=== PATIENT | male | born 1940 | race Caucasian/White ===

== ENCOUNTER → 2017-12-31 09:13 | Outpatient (CLI) | payer MEDICARE, SELFPAY ==
[2017-12-31 09:53] LABS: Basophils % 0.5 % (0.1-2.0); Eosinophils # 0.1 K/mm3 (0.0-0.4); Eosinophils % 1.8 % (0.1-12.0); Hematocrit 42.7 % (42.0-52.0); Lymphocytes # 1.4 K/mm3 (0.7-4.5); Lymphocytes % 19.8 K/mm3 (10-50); Mean Corpuscular HGB Conc 32.9 g/dL (31.8-35.4); Mean Corpuscular Hemoglobin 30.7 pg (27.0-31.2); Mean Corpuscular Volume 93.3 fl (80-94); Mean Platelet Volume 9.6 fl (7.4-10.4); Monocytes # 0.4 K/mm3 (0.1-1.0); Monocytes % 5.8 % (1.7-9.3); Neutrophils # 5.1 K/mm3 (1.8-7.8); Neutrophils % 72.2 % (37.0-80.0); Platelet Count 180 K/mm3 (142-424); Red Blood Count 4.57 M/mm3 (4.60-6.20); Red Cell Distribution Width 14.4 % (11.5-17.5); White Blood Count 7.1 K/mm3 (4.8-10.8)
[2017-12-31 10:15] LABS: Hemoglobin A1C 8.2 % (0.0-7.0)
[2017-12-31 11:50] LABS: Alanine Aminotransferase 34 U/L (12-78); Albumin Level 4.4 gm/dL (3.4-5.0); Albumin/Globulin Ratio 1.5 (1.1-1.8); Alkaline Phosphatase 52 U/L (46-116); Anion Gap 15.5 mEq/L (5-15); Aspartate Amino Transferase 19 U/L (15-37); Bilirubin,Total 0.8 mg/dL (0.2-1.0); Blood Urea Nitrogen 29 mg/dL (7-18); Calcium 9.7 mg/dL (8.5-10.1); Carbon Dioxide 26 mmol/L (21.0-32.0); Chloride 101 mmol/L (98-107); Chol/HDL Ratio 3.2 (1-3.5); Cholesterol 141 mg/dL (140-200); Creatinine,Serum 1.06 mg/dL (0.70-1.30); Estimated Glomerular Filt Rate 68 ml/min (>60); GFR (African American) 82 ML/MIN (>60); Glucose 150 mg/dL (74-106); HDL Cholesterol 44 mg/dL (27-67); LDL Cholesterol 77 mg/dL (0-130); Potassium 4.5 mmoL/L (3.5-5.1); Prostate Specific Ag Screen 1.7 ng/mL (0.0-4.0); Sodium 138 mmol/L (136-145); Total Protein,Serum 7.4 gm/dL (6.4-8.2); Triglycerides 100 mg/dL (30-200); VLDL Cholesterol 20 mg/dL (0-40)
== END ==
PROVIDERS: Visit Provider Nurse Practitioner Family
DX: M05.79 Rheumatoid arthritis with rheumatoid factor of multiple sites without organ or systems involvement (principal); E11.9 Type 2 diabetes mellitus without complications; I10 Essential (primary) hypertension; N40.1 Benign prostatic hyperplasia with lower urinary tract symptoms; Z12.5 Encounter for screening for malignant neoplasm of prostate
CPT/HCPCS: 36415; 80053; 80061; 83036; 85025; G0103

== ENCOUNTER → 2018-05-11 09:21 | Outpatient (CLI) | payer MEDICARE, SELFPAY ==
--- NOTE | 2018-05-11 09:27 | XR_ITS ---
XR foot RT min 3V HISTORY: ITS.REASON: RT FOOT PAIN ORDERING PHYSICIAN: Velma Rojas PATIENT AGE: 78 years COMPARISON: None FINDINGS: No fracture or dislocation. No lytic or blastic change. There is normal mineralization.. The joint spaces are well-preserved. No significant degenerative/arthritic changes. No erosive changes evident. Small area of cortical irregularity involves the distal and medial aspect of the medial cuneiform. This is of questionable clinical significance and may be related to small subarticular cyst IMPRESSION: 1. No acute finding. 2. Nonspecific mild cortical irregularity of the medial cuneiform and could be related to a small subarticular cyst
--- NOTE | 2018-05-11 09:30 | US_ITS ---
US scrotum HISTORY: ITS.REASON: RT TESTICULAR PAIN ORDERING PHYSICIAN: Velma Rojas PATIENT AGE: 78 years Comparison: None FINDINGS: The right testicle is 3.5 x 2 x 3.2 cm and has an unremarkable appearance. No testicular mass. There is a small epididymal cyst at 5 mm in the head of the epididymis. Blood flow is present. No significant hydrocele. The left testicle is 3.9 x 3.4 x 2.2 cm. There is a 6 mm left epididymal cyst. No testicular mass apparent. Blood flow is present. No significant hydrocele. IMPRESSION: Small bilateral epididymal cyst otherwise negative testicular ultrasound
== END ==
PROVIDERS: PCP Nurse Practitioner Family; Visit Provider Nurse Practitioner Family
DX: M79.671 Pain in right foot (principal); N50.811 Right testicular pain
CPT/HCPCS: 73630; 76870

== ENCOUNTER 2018-06-24 12:33 | Observation (INO) ==
[2018-06-24 13:31] LABS: Basophils % 0.2 % (0.1-2.0); Eosinophils # 0.1 K/mm3 (0.0-0.4); Eosinophils % 1.1 % (0.1-12.0); Hematocrit 43.5 % (42.0-52.0); Lymphocytes # 0.6 K/mm3 (0.7-4.5); Lymphocytes % 5.4 % (10-50); Mean Corpuscular HGB Conc 32.2 g/dL (31.8-35.4); Mean Corpuscular Hemoglobin 30.5 pg (27.0-31.2); Mean Corpuscular Volume 94.8 fl (80-94); Mean Platelet Volume 8.8 fl (7.4-10.4); Monocytes # 0.6 K/mm3 (0.1-1.0); Monocytes % 5.6 % (1.7-9.3); Neutrophils # 9.8 K/mm3 (1.8-7.8); Neutrophils % 87.7 % (37.0-80.0); Platelet Count 189 K/mm3 (142-424); Red Blood Count 4.59 M/mm3 (4.60-6.20); Red Cell Distribution Width 15.6 % (11.5-17.5); White Blood Count 11.2 K/mm3 (4.8-10.8)
[2018-06-24 13:43] LABS: Albumin Level 3.8 gm/dL (3.4-5.0); Albumin/Globulin Ratio 0.9 (1.1-1.8); Anion Gap 15.3 mEq/L (5-15); Calcium 9.4 mg/dL (8.5-10.1); Globulin 4.2 gm/dl (1.3-3.2); Potassium 4.3 mmoL/L (3.5-5.1)
[2018-06-24 14:11] LABS: Lymphocytes % 6 % (10-50); Monocytes % 7 % (2-9); Neutrophils % 86 % (42-76); RBC Morphology Normal; Total Cells Counted 100
[2018-06-24 15:01] LABS: Coronavirus 229E Not Detected (NotDetected); Coronavirus NL63 Not Detected (NotDetected); Coronavirus OC43 Not Detected (NotDetected); Coronovirus HKU1,PCR Not Detected (NotDetected)
--- NOTE | 2018-06-24 15:08 | Consult Report ---
*Admission Date: 06/24/18 *Chief complaint: difficulty swallowing/dysphagia/sore throat *History of present illness: see other report [facility] History I have reviewed the patient's past medical history: Yes Medical History: Reports:: Congestive Heart Failure, Coronary Artery Disease, Diabetes Mellitus Type 2, Hyperlipidemia, Hypertension Denies:: Cancer, MRSA Other Medical History: Reports: Arthritis Laterality Cases: Right: Arthroscopy Knee Other Surgeries: Yes: Cardiac Catheterization, Coronary Stent Amputation: No - *Social History Educational Level: Attended College Smoking Status: Former smoker # Packs/Day (cigarettes): 2 #Yrs smoked (if former smoker): 30 Alcohol Intake: never Occupational Status: retired Housing: house Household Members: spouse - Psychiatric History Expresses thoughts of harming self/others: None Suicide Plan Description: No Plan *Family Hx:: Cancer, Hyperlipidemia, Hypertension Review of Systems - ENT Reports pain with swallowing, Reports sore throat Meds Home Medications Medication Instructions Recorded Confirmed Type aspirin 81 mg tablet,delayed 81 mg PO DAILY 06/22/18 06/22/18 History release folic acid 1 mg tablet 1 mg PO DAILY 06/22/18 06/22/18 History lisinopril 10 mg tablet 10 mg PO DAILY 06/22/18 06/22/18 History metformin 1,000 mg tablet 1,000 mg PO BID 06/22/18 06/22/18 History metoprolol tartrate 50 mg tablet 50 mg PO BID 06/22/18 06/22/18 History pravastatin 40 mg tablet 40 mg PO DAILY 06/22/18 06/22/18 History prednisone 1 mg tablet 1 mg PO BID tab 06/22/18 06/22/18 History Allergies Allergy/AdvReac Type Severity Reaction Status Date / Time No Known Allergies Allergy Verified 06/22/18 12:52 Exam Vital signs and Labs for Last 24 Hours: Temp Pulse Resp BP Pulse Ox 99.6 F 120 H 20 142/85 H 96 06/24/18 12:56 06/24/18 12:56 06/24/18 12:56 06/24/18 12:56 06/24/18 12:56 Laboratory Results - last 24 hr 06/24/18 13:15: WBC 11.2 H, RBC 4.59 L, Hgb 14.0 L, Hct 43.5, MCV 94.8 H, MCH 30.5, MCHC 32.2, RDW 15.6, Plt Count 189, MPV 8.8, Neut % (Auto) 87.7 H, Lymph % (Auto) 5.4 L, [place] % (Auto) 5.6, Eos % (Auto) 1.1, Baso % (Auto) 0.2, Neut # (Auto) 9.8 H, Lymph # (Auto) 0.6 L, [place] # (Auto) 0.6, Eos # (Auto) 0.1, Baso # (Auto) 0.0, Total Counted 100, Neutrophils % (Manual) 86 H, Lymphocytes % (Manual) 6 L, Atypical Lymphs % 1.0, Monocytes % (Manual) 7, Platelet Estimate Normal, RBC Morphology Normal 06/24/18 13:15: Sodium 137, Potassium 4.3, Chloride 99, Carbon Dioxide 27, Anion Gap 15.3 H, BUN 30 H, Creatinine 1.44 H, Estimated Creat Clear 45, Estimated GFR 47 L, Est GFR ( Amer) 57 L, Glucose 165 H, Calcium 9.4, Total Bilirubin 1.0, AST 14 L, ALT 24, Alkaline Phosphatase 68, Total Protein 8.0, Albumin 3.8, Globulin 4.2 H, Albumin/Globulin Ratio 0.9 L 06/24/18 13:15: Lactate 2.0 I & O for Last 24 hours: Intake & Output 06/21/18 06/22/18 06/23/18 06/24/18 23:59 23:59 23:59 23:59 Weight 165 lb 1 oz - *Routine HEENT Exam Comments: This patient was examined because of dysphagia and a sore throat of 24 hours duration. He was admitted because of a choking episode that he experienced. Examination revealed acute pharyngitis and a very hyperactive gag reflex. There was no cervical lymphadenopathy or enlargement of his thyroid. Rest of the exam was noncontributory. No acute respiratory distress. No evidence of Inspiratory or expiratory stridor. There Was no history of hemoptysis or Persistent cough. I note a CT of the neck and a chest x-ray has been done but it had not been reported as of this dictation. I ordered a stat barium swallow examination and we will complete the report once all of the imaging is done. Dr. Aden Garcia. Internal Medicine - CN: Reslt - Labs CBC & Chem 7: 06/24/18 13:15 06/24/18 13:15 Labs: Short CBC 06/24/18 Range/Units 13:15 WBC 11.2 H (4.8-10.8) K/mm3 Hgb 14.0 L (14.1-18.0) g/dL Hct 43.5 (42.0-52.0) % Plt Count 189 (142-424) K/mm3 BMP 06/24/18 13:15 Sodium 137 Potassium 4.3 Chloride 99 Carbon Dioxide 27 BUN 30 H Creatinine 1.44 H Glucose 165 H Calcium 9.4 Liver Function 06/24/18 Range/Units 13:15 Total Bilirubin 1.0 (0.2-1.0) mg/dL AST 14 L (15-37) U/L ALT 24 (12-78) U/L Alkaline Phosphatase 68 (46-116) U/L Albumin 3.8 (3.4-5.0) gm/dL
--- NOTE | 2018-06-24 15:08 | Pharmacy Consult Notes ---
[facility] Pharmacy VTE Monitoring - Patient Demographics Admission date: 06/24/18 Report Date: 06/24/18 Time: 15:07 Allergies/Adverse Reactions: Patient Allergies No Known Allergies Allergy (Verified 06/22/18 12:52) Height: 1.7 m Weight: 74.871 kg - VTE Risk Labs: VTE Related Lab Results Hgb 14.0 g/dL (14.1-18.0) L 06/24/18 13:15 Hct 43.5 % (42.0-52.0) 06/24/18 13:15 Plt Count 189 K/mm3 (142-424) 06/24/18 13:15 BUN 30 mg/dL (7-18) H 06/24/18 13:15 Creatinine 1.44 mg/dL (0.70-1.30) H 06/24/18 13:15 Estimated Creat Clear 45 mL/min (0-300) 06/24/18 13:15 Was VTE Risk Assessment Performed: Yes VTE Score: 4 VTE Risk Level: Low Risk - Prophylaxis VTE Prophylaxis Ordered?: Yes Types of VTE Prophylaxis: TEDS Knee High Location of Applied Device: Bilateral Lower Extremeties
--- NOTE | 2018-06-24 17:41 | History & Physical Report ---
*Admission Date: 06/24/18 *Chief complaint: Sore throat, difficulty swallowing *History of present illness: 78 yr old male presented to clinic with 4 day history of severe sore throat, difficulty swallowing and fevers. He was seen in our office yesterday and given a prescription for amoxicillin and a steroid injection but he has not started antibiotics at time of exam because of inability to swallow. He has associated bilateral ear pain, eye drainage that has been green in color, nonproductive cough, malaise and loss of appetite. Reports that the last time he truly drank anything was about 3 days ago. He attempted to eat some cereal last night but it became lodged in his throat and he was unable to clear it, eventually coughed it up and has not attempted to eat or drink again. He is chronically immunosuppressed on methotrexate therapy and low-dose prednisone for rheumatoid arthritis. Last dose of methotrexate was June 18, 2018. In clinic he has difficulty and discomfort swallowing saliva, was noted to be febrile, tachycardic and had lost 3 pounds in 24 hours. [place] to be dehydrated an d in mild distress and was admitted for management. [facility] History I have reviewed the patient's past medical history: Yes Medical History: Reports:: Congestive Heart Failure, Coronary Artery Disease, Diabetes Mellitus Type 2, Hyperlipidemia, Hypertension Denies:: Cancer, MRSA Other Medical History: Reports: Arthritis Laterality Cases: Right: Arthroscopy Knee Other Surgeries: Yes: Cardiac Catheterization, Coronary Stent Amputation: No - *Social History Educational Level: Attended College Smoking Status: Former smoker # Packs/Day (cigarettes): 2 #Yrs smoked (if former smoker): 30 Alcohol Intake: never Substance Use Type: denies use Occupational Status: retired Housing: house Household Members: spouse - Psychiatric History Expresses thoughts of harming self/others: None Suicide Plan Description: No Plan *Family Hx:: Cancer, Hyperlipidemia, Hypertension Comment: psoriatic arthritis Review of Systems - Review of Systems Review of systems:: pertinent systems reviewed and negative unless documented below - Constitutional Reports anorexia, Reports body ache(s), Reports chills, Reports fatigue, Reports fever(s), Reports malaise, Reports weakness, Reports weight loss - Eyes Reports discharge, Reports irritation - ENT Reports difficulty swallowing, Reports ear pain, Reports nasal congestion, Reports nasal discharge, Reports pain with swallowing, Reports sore throat - *Cardiovascular Denies chest pain, Denies shortness of breath, Denies shortness of breath with activity - *Respiratory Reports cough, Denies shortness of breath - *Gastrointestinal Reports difficulty swallowing, Reports nausea, Reports pain with swallowing, Denies abdominal pain, Denies loose stools - *Genitourinary Reports decreased urination, Denies difficulty urinating - *Musculoskeletal Reports joint pain, Reports body aches Comments: at baseline - Integumentary/Breasts Reports dry skin, Denies rash - *Neurologic Reports tremor(s) Comments: tremors noted since onset of illness about 72 hours ago - Psychiatric Denies anxiety, Denies confusion - Endocrine Reports rapid, pounding, or irregular heartbeat - Hematologic/Lymphatic Denies easy bleeding, Denies enlarged lymph nodes Meds Home Medications Medication Instructions Recorded Confirmed Type aspirin 81 mg tablet,delayed 81 mg PO DAILY 06/22/18 06/24/18 History release folic acid 1 mg tablet 1 mg PO DAILY 06/22/18 06/24/18 History lisinopril 10 mg tablet 10 mg PO DAILY 06/22/18 06/24/18 History metformin 1,000 mg tablet 1,000 mg PO BID 06/22/18 06/24/18 History metoprolol tartrate 50 mg tablet 50 mg PO BID 06/22/18 06/24/18 History pravastatin 40 mg tablet 40 mg PO DAILY 06/22/18 06/24/18 History prednisone 1 mg tablet 1 mg PO BID tab 06/22/18 06/24/18 History Allergies Allergy/AdvReac Type Severity Reaction Status Date / Time No Known Allergies Allergy Verified 06/22/18 12:52 Exam Vital signs and Labs for Last 24 Hours: Temp Pulse Resp BP Pulse Ox 98.8 F 107 H 18 133/74 97 06/24/18 15:54 06/24/18 15:54 06/24/18 15:54 06/24/18 15:54 06/24/18 15:57 Laboratory Results - last 24 hr 06/24/18 13:15: WBC 11.2 H, RBC 4.59 L, Hgb 14.0 L, Hct 43.5, MCV 94.8 H, MCH 30.5, MCHC 32.2, RDW 15.6, Plt Count 189, MPV 8.8, Neut % (Auto) 87.7 H, Lymph % (Auto) 5.4 L, [place] % (Auto) 5.6, Eos % (Auto) 1.1, Baso % (Auto) 0.2, Neut # (Auto) 9.8 H, Lymph # (Auto) 0.6 L, [place] # (Auto) 0.6, Eos # (Auto) 0.1, Baso # (Auto) 0.0, Total Counted 100, Neutrophils % (Manual) 86 H, Lymphocytes % (Manual) 6 L, Atypical Lymphs % 1.0, Monocytes % (Manual) 7, Platelet Estimate Normal, RBC Morphology Normal 06/24/18 13:15: Sodium 137, Potassium 4.3, Chloride 99, Carbon Dioxide 27, Anion Gap 15.3 H, BUN 30 H, Creatinine 1.44 H, Estimated Creat Clear 45, Estimated GFR 47 L, Est GFR ( Amer) 57 L, Glucose 165 H, Calcium 9.4, Total Bilirubin 1.0, AST 14 L, ALT 24, Alkaline Phosphatase 68, Total Protein 8.0, Albumin 3.8, Globulin 4.2 H, Albumin/Globulin Ratio 0.9 L 06/24/18 13:15: Lactate 2.0 06/24/18 14:50: Chlamy pneumoniae PCR Not detected, Adenovirus (PCR) Not detected, B.parapertussis DNA PCR Not detected, Coronavirus OC43 (PCR) Not detected, Coronavirus HKU1 (PCR) Not detected, Coronavirus 229E (PCR) Not detected, Coronavirus NL63 (PCR) Not detected, Human Metapneumovir PCR Not detected, Influenza A (H1) PCR Not detected, Influ A (H1N1/09) PCR Not detected, Influenza A (H3) PCR Not detected, Influenza Type A (PCR) Not detected, Influenza Type B (PCR) Not detected, M. pneumoniae (PCR) Not detected, Parainfluenza 1 (PCR) Not detected, Parainfluenza 2 (PCR) Not detected, Parainfluenza 3 (PCR) Not detected, Parainfluenza 4 (PCR) Not detected, RSV (PCR) Not detected, Entero/Rhino (PCR) Not detected I & O for Last 24 hours: Intake & Output 06/22/18 06/23/18 06/24/18 06/25/18 11:59 11:59 11:59 11:59 Intake Total 504 / 504 Balance 504 / 504 Weight 165 lb 1 oz - Constitutional mild distress, cooperative - *Routine HEENT Exam Head: Present: normocephalic Eye: Present: scleral injection ENT: Present: mucous membranes dry Comments: pharyngeal erythema and purulent postnasal drainage noted, mild erythema left TM but no effusion, mild nasal congestion. Conjunctival injection and purulent discharge at the inner canthus right eye - *Routine Neck Exam Present: supple, tenderness Comments: anterior cervical nodes tender but not enlarged - *Routine Respiratory Exam Present: CTA bilaterally. Absent: accessory muscle use - *Routine Cardiovascular Exam Present: RRR, tachycardia - *Routine Abdominal Exam Present: soft, normoactive bowel sounds. Absent: tenderness, distended - *Routine Extremities Exam Present: normal capillary refill. Absent: clubbing, edema - *Routine Skin Exam Present: intact, dry, warm. Absent: erythema Comments: decreased turgor - *Routine Neurological Exam Present: alert, oriented X3, tremors Assessment and Plan (1) Pharyngitis Current visit: Yes Status: Acute Category: Medical Code(s): J02.9 - Acute pharyngitis, unspecified Culture obtained, start IV antibiotics given his severity of illness and inability to swallow medications at this time (2) Dehydration Current visit: Yes Status: Acute Category: Medical Code(s): E86.0 - Dehydration IV rehydration with LR, hold home antihypertensives (3) ALEXIS (acute kidney injury) Current visit: Yes Status: Acute Category: Medical Code(s): N17.9 - Acute kidney failure, unspecified Baseline creatinine 1.0, now 1.4 at time of admission. Prerenal, rehydrate overnight and trend creatinine (4) Immunosuppressed status Current visit: Yes Status: Acute Category: Medical Code(s): D89.9 - Disorder involving the immune mechanism, unspecified Hold methotrexate, Throat culture, blood culture, sputum culture and respiratory PCR ordered (5) Left lower lobe pulmonary nodule Current visit: Yes Status: Acute Category: Medical Code(s): R91.1 - Solitary pulmonary nodule Rec CT imaging as an outpatient (6) Conjunctivitis Current visit: Yes Status: Acute Category: Medical Code(s): H10.9 - Unspecified conjunctivitis Warm compresses ad katherin, will begin antibiotics topically (7) Diabetes mellitus type 2 in nonobese Current visit: Yes Status: Chronic Category: Medical Code(s): E11.9 - Type 2 diabetes mellitus without complications FSBS AC and HS with sliding scale insulin if needed during admission (8) HTN (hypertension) Current visit: Yes Status: Chronic Qualifiers: Hypertension type: essential hypertension Qualified Code(s): I10 - Essential (primary) hypertension Category: Medical Code(s): I10 - Essential (primary) hypertension Hold antihypertensives at time of admission
[2018-06-25 06:19] LABS: Anion Gap 12.9 mEq/L (5-15); Calcium 8.9 mg/dL (8.5-10.1); Potassium 3.9 mmoL/L (3.5-5.1)
[2018-06-25 06:23] LABS: Basophils % 0.2 % (0.1-2.0); Eosinophils # 0.1 K/mm3 (0.0-0.4); Eosinophils % 0.8 % (0.1-12.0); Hematocrit 38.5 % (42.0-52.0); Lymphocytes # 0.9 K/mm3 (0.7-4.5); Lymphocytes % 13.9 % (10-50); Mean Corpuscular HGB Conc 31.5 g/dL (31.8-35.4); Monocytes # 0.5 K/mm3 (0.1-1.0); Monocytes % 8.5 % (1.7-9.3); Neutrophils # 4.8 K/mm3 (1.8-7.8); Neutrophils % 76.7 % (37.0-80.0); Platelet Count 150 K/mm3 (142-424); Red Blood Count 4.05 M/mm3 (4.60-6.20); Red Cell Distribution Width 15.6 % (11.5-17.5); White Blood Count 6.2 K/mm3 (4.8-10.8)
[2018-06-25 06:40] LABS: Hemoglobin 12.1 g/dL (14.1-18.0)
--- NOTE | 2018-06-25 13:56 | Discharge Summary ---
General - General Admission date:: 06/24/18 Discharge date: 06/25/18 HPI HPI: 78 yr old male presented to clinic with 4 day history of severe sore throat, difficulty swallowing and fevers. He was seen in our office yesterday and given a prescription for amoxicillin and a steroid injection but he has not started antibiotics at time of exam because of inability to swallow. He has associated bilateral ear pain, eye drainage that has been green in color, nonproductive cough, malaise and loss of appetite. Reports that the last time he truly drank anything was about 3 days ago. He attempted to eat some cereal last night but it became lodged in his throat and he was unable to clear it, eventually coughed it up and has not attempted to eat or drink again. He is chronically immunosuppressed on methotrexate therapy and low-dose prednisone for rheumatoid arthritis. Last dose of methotrexate was June 18, 2018. In clinic he has difficulty and discomfort swallowing saliva, was noted to be febrile, tachycardic and had lost 3 pounds in 24 hours. [place] to be dehydrated and in mild distress and was admitted for management. Hospital Course Hospital Course: Mr. Mcneil was admitted to medicine service for management of pharyngitis and concern for pharyngeal/hypopharyngeal swelling. CT obtained of the neck along with barium swallow. These results led to a consult of ENT. ENT felt patient's swelling was not the result of an abscess however recommended antibiotics or steroids if needed to decrease symptoms. Patient was observed overnight, p.o. challenged. Tolerated IV antibiotics and oral intake. Had improved swallowing and discomfort on second day of admission. Medically stable for discharge home. Transition to oral antibiotics, tolerated well. Discharged home to complete course of oral antibiotics and follow-up in the outpatient setting. No episodes of respiratory distress, nausea or vomiting, or inability to take p.o. intake during admission. Stable Objective Vital signs: Temp Pulse Resp BP Pulse Ox 97.9 F 82 17 137/74 99 06/25/18 07:43 06/25/18 07:43 06/25/18 07:43 06/25/18 07:43 06/25/18 07:43 Narrative: - Constitutional No acute distress, cooperative - *Routine HEENT Exam Head: Present: normocephalic Eye: Present: scleral injection ENT: Present: mucous membranes dry Comments: Interval improvement in pharyngeal erythema, mild erythema left TM but no effusion, mild nasal congestion. Conjunctival injection and purulent discharge at the inner canthus right eye - *Routine Neck Exam Present: supple, tenderness Comments: anterior cervical nodes tender but not enlarged - *Routine Respiratory Exam Present: CTA bilaterally. Absent: accessory muscle use - *Routine Cardiovascular Exam Present: RRR, tachycardia - *Routine Abdominal Exam Present: soft, normoactive bowel sounds. Absent: tenderness, distended - *Routine Extremities Exam Present: normal capillary refill. Absent: clubbing, edema - *Routine Skin Exam Present: intact, dry, warm, normal turgor. Absent: erythema - *Routine Neurological Exam Present: alert, oriented X3, tremors Results Labs on day of discharge: Labs from last 24 hours 06/25/18 06/25/18 06/25/18 06:40 05:38 05:38 WBC 6.2 D RBC 4.05 L Hgb 12.1 L D Hct 38.5 L MCV 95.0 H MCH 30.0 MCHC 31.5 L RDW 15.6 Plt Count 150 MPV 9.0 Neut % (Auto) 76.7 Lymph % (Auto) 13.9 [place] % (Auto) 8.5 Eos % (Auto) 0.8 Baso % (Auto) 0.2 Neut # (Auto) 4.8 Lymph # (Auto) 0.9 [place] # (Auto) 0.5 Eos # (Auto) 0.1 Baso # (Auto) 0.0 Total Counted Neutrophils % (Manual) Lymphocytes % (Manual) Atypical Lymphs % Monocytes % (Manual) Platelet Estimate RBC Morphology Sodium 139 Potassium 3.9 Chloride 103 Carbon Dioxide 27 Anion Gap 12.9 BUN 32 H Creatinine 1.46 H Estimated Creat Clear 44 Estimated GFR 47 L Est GFR ( Amer) 57 L Glucose 126 H D POC Glucose 121 H Calcium 8.9 Chlamy pneumoniae PCR Adenovirus (PCR) B.parapertussis DNA PCR Coronavirus OC43 (PCR) Coronavirus HKU1 (PCR) Coronavirus 229E (PCR) Coronavirus NL63 (PCR) Human Metapneumovir PCR Influenza A (H1) PCR Influ A (H1N1/09) PCR Influenza A (H3) PCR Influenza Type A Ag Influenza Type A (PCR) Influenza Type B Ag Influenza Type B (PCR) M. pneumoniae (PCR) Parainfluenza 1 (PCR) Parainfluenza 2 (PCR) Parainfluenza 3 (PCR) Parainfluenza 4 (PCR) RSV (PCR) Entero/Rhino (PCR) 06/24/18 06/24/18 06/24/18 21:54 16:35 14:50 WBC RBC Hgb Hct MCV MCH MCHC RDW Plt Count MPV Neut % (Auto) Lymph % (Auto) Hemphill % (Auto) Eos % (Auto) Baso % (Auto) Neut # (Auto) Lymph # (Auto) [place] # (Auto) Eos # (Auto) Baso # (Auto) Total Counted Neutrophils % (Manual) Lymphocytes % (Manual) Atypical Lymphs % Monocytes % (Manual) Platelet Estimate RBC Morphology Sodium Potassium Chloride Carbon Dioxide Anion Gap BUN Creatinine Estimated Creat Clear Estimated GFR Est GFR ( Amer) Glucose POC Glucose 125 H 142 H Calcium Chlamy pneumoniae PCR Not detected Adenovirus (PCR) Not detected B.parapertussis DNA PCR Not detected Coronavirus OC43 (PCR) Not detected Coronavirus HKU1 (PCR) Not detected Coronavirus 229E (PCR) Not detected Coronavirus NL63 (PCR) Not detected Human Metapneumovir PCR Not detected Influenza A (H1) PCR Not detected Influ A (H1N1/09) PCR Not detected Influenza A (H3) PCR Not detected Influenza Type A Ag Influenza Type A (PCR) Not detected Influenza Type B Ag Influenza Type B (PCR) Not detected M. pneumoniae (PCR) Not detected Parainfluenza 1 (PCR) Not detected Parainfluenza 2 (PCR) Not detected Parainfluenza 3 (PCR) Not detected Parainfluenza 4 (PCR) Not detected RSV (PCR) Not detected Entero/Rhino (PCR) Not detected 06/24/18 06/24/18 13:15 13:15 WBC RBC Hgb Hct MCV MCH MCHC RDW Plt Count MPV Neut % (Auto) Lymph % (Auto) [place] % (Auto) Eos % (Auto) Baso % (Auto) Neut # (Auto) Lymph # (Auto) [place] # (Auto) Eos # (Auto) Baso # (Auto) Total Counted 100 Neutrophils % (Manual) 86 H Lymphocytes % (Manual) 6 L Atypical Lymphs % 1.0 Monocytes % (Manual) 7 Platelet Estimate Normal RBC Morphology Normal Sodium Potassium Chloride Carbon Dioxide Anion Gap BUN Creatinine Estimated Creat Clear Estimated GFR Est GFR ( Amer) Glucose POC Glucose Calcium Chlamy pneumoniae PCR Adenovirus (PCR) B.parapertussis DNA PCR Coronavirus OC43 (PCR) Coronavirus HKU1 (PCR) Coronavirus 229E (PCR) Coronavirus NL63 (PCR) Human Metapneumovir PCR Influenza A (H1) PCR Influ A (H1N1/09) PCR Influenza A (H3) PCR Influenza Type A Ag Negative Influenza Type A (PCR) Influenza Type B Ag Negative Influenza Type B (PCR) M. pneumoniae (PCR) Parainfluenza 1 (PCR) Parainfluenza 2 (PCR) Parainfluenza 3 (PCR) Parainfluenza 4 (PCR) RSV (PCR) Entero/Rhino (PCR) Preliminary micro results at discharge 06/24/18 13:15 Throat Culture - Preliminary Throat 06/24/18 13:15 Sputum Culture - Preliminary Sputum - Expectorated Sputum DS: Diagnosis - Discharge Diagnosis (1) Pharyngitis Status: Acute (2) Dehydration Status: Acute (3) ALEXIS (acute kidney injury) Status: Acute (4) Immunosuppressed status Status: Acute (5) Left lower lobe pulmonary nodule Status: Acute (6) Conjunctivitis Status: Acute (7) Diabetes mellitus type 2 in nonobese Status: Chronic (8) HTN (hypertension) Status: Chronic Discharge Plan - Patient Discharge Instructions ACTIVITY: Continue current activity DIET: continue same diet Patient Instructions: Oropharyngeal Dysphagia - Follow up Plan Follow up with: Suman Watson MD [Primary Care Provider] - Disposition: Home, Self-Halfway Medications: Home Medications Medication Instructions Recorded Confirmed Type aspirin 81 mg tablet,delayed 81 mg PO DAILY 06/22/18 06/24/18 History release folic acid 1 mg tablet 1 mg PO DAILY 06/22/18 06/24/18 History lisinopril 10 mg tablet 10 mg PO BID 06/22/18 06/25/18 History metformin 1,000 mg tablet 1,000 mg PO BID 06/22/18 06/24/18 History metoprolol tartrate 50 mg tablet 50 mg PO BID 06/22/18 06/24/18 History pravastatin 40 mg tablet 40 mg PO HS 06/22/18 06/25/18 History prednisone 1 mg tablet 1 mg PO BID tab 06/22/18 06/24/18 History Cetirizine HCl 10 mg PO DAILY 06/25/18 06/25/18 History Fluticasone Propionate [Flonase 1 spr NS DAILY 06/25/18 06/25/18 History 50mcg nasal spray 16gm] Sitagliptin Phosphate [Januvia 100 mg PO DAILY 06/25/18 06/25/18 History 100mg tablet] Tamsulosin HCl [Flomax 0.4mg 0.4 mg PO HS 06/25/18 06/25/18 History capsule] metHOTREXate sodium [metHOTREXate 15 mg PO WEEKLY 06/25/18 06/25/18 History 2.5mg Tablet] Prescriptions/Medication Reconciliation: Continue folic acid 1 mg tablet 1 mg PO DAILY metformin 1,000 mg tablet 1,000 mg PO BID prednisone 1 mg tablet 1 mg PO BID tab metoprolol tartrate 50 mg tablet 50 mg PO BID lisinopril 10 mg tablet 10 mg PO BID pravastatin 40 mg tablet 40 mg PO HS aspirin 81 mg tablet,delayed release 81 mg PO DAILY Sitagliptin Phosphate [Januvia 100mg tablet] 100 mg PO DAILY Cetirizine HCl 10 mg PO DAILY metHOTREXate sodium [metHOTREXate 2.5mg Tablet] 15 mg PO WEEKLY Fluticasone Propionate [Flonase 50mcg nasal spray 16gm] 1 spr NS DAILY Tamsulosin HCl [Flomax 0.4mg capsule] 0.4 mg PO HS Discontinued Amoxicillin [Amoxicillin 875MG Tab] 875 mg PO Q12H
== END 2018-06-25 14:56 | disposition home or self-care (01) ==
LOC: 2ND
PROVIDERS: ADMIT Internal Medicine Adolescent Medicine; ATTEND Internal Medicine Adolescent Medicine
CPT/HCPCS: 36415; 70491; 71020; 71046; 74220; 80048; 80053; 82962; 83605; 85007; 85025; 87040; 87070; 87205; 87275; 87276; 87486; 87581; 87633; 87798; G0378; J1956; J2543; Q9967

== ENCOUNTER → 2018-08-19 10:44 | Outpatient (CLI) | payer MEDICARE, SELFPAY ==
[2018-08-19 11:05] LABS: Basophils % 0.2 % (0.1-2.0); Eosinophils # 0.1 K/mm3 (0.0-0.4); Eosinophils % 2.3 % (0.1-12.0); Hematocrit 46.2 % (42.0-52.0); Hemoglobin 14.5 g/dL (14.1-18.0); Lymphocytes # 1.7 K/mm3 (0.7-4.5); Lymphocytes % 28.1 % (10-50); Mean Corpuscular HGB Conc 31.4 g/dL (31.8-35.4); Mean Corpuscular Hemoglobin 29.7 pg (27.0-31.2); Mean Corpuscular Volume 94.5 fl (80-94); Mean Platelet Volume 9.3 fl (7.4-10.4); Monocytes # 0.3 K/mm3 (0.1-1.0); Monocytes % 5.7 % (1.7-9.3); Neutrophils # 3.8 K/mm3 (1.8-7.8); Neutrophils % 63.7 % (37.0-80.0); Platelet Count 153 K/mm3 (142-424); Red Blood Count 4.89 M/mm3 (4.60-6.20); Red Cell Distribution Width 13.9 % (11.5-17.5)
[2018-08-19 11:42] LABS: Alanine Aminotransferase 24 U/L (12-78); Albumin Level 3.9 gm/dL (3.4-5.0); Albumin/Globulin Ratio 1.2 (1.1-1.8); Alkaline Phosphatase 66 U/L (46-116); Anion Gap 12.2 mEq/L (5-15); Aspartate Amino Transferase 15 U/L (15-37); Bilirubin,Total 0.7 mg/dL (0.2-1.0); Blood Urea Nitrogen 22 mg/dL (7-18); Calcium 9.1 mg/dL (8.5-10.1); Carbon Dioxide 29 mmol/L (21.0-32.0); Chloride 101 mmol/L (98-107); Cholesterol 193 mg/dL (140-200); Creatinine,Serum 1.09 mg/dL (0.70-1.30); Estimated Glomerular Filt Rate 65 ml/min (>60); GFR (African American) 79 ML/MIN (>60); Globulin 3.2 gm/dl (1.3-3.2); Glucose 137 mg/dL (74-106); HDL Cholesterol 48 mg/dL (27-67); LDL Cholesterol 127 mg/dL (0-130); Potassium 4.2 mmoL/L (3.5-5.1); Sodium 138 mmol/L (136-145); Thyroid Stimulating Hormone 0.71 uIU/ml (0.358-3.740); Total Protein,Serum 7.1 gm/dL (6.4-8.2); Triglycerides 91 mg/dL (30-200); VLDL Cholesterol 18 mg/dL (0-40)
[2018-08-19 11:44] LABS: Hemoglobin A1C 7.2 % (0.0-7.0)
[2018-08-19 13:15] LABS: Erythrocyte Sedimentation Rate 16 mm/hr (0-20)
== END ==
PROVIDERS: Visit Provider Nurse Practitioner Family
DX: M05.79 Rheumatoid arthritis with rheumatoid factor of multiple sites without organ or systems involvement (principal); I10 Essential (primary) hypertension; E11.9 Type 2 diabetes mellitus without complications
CPT/HCPCS: 36415; 80053; 80061; 83036; 84443; 85025; 85651

== ENCOUNTER → 2018-12-20 08:46 | Outpatient (CLI) | payer MEDICARE, SELFPAY ==
[2018-12-20 09:17] LABS: Basophils % 0.3 % (0.1-2.0); Eosinophils # 0.2 K/mm3 (0.0-0.4); Eosinophils % 3.2 % (0.1-12.0); Hematocrit 42.5 % (42.0-52.0); Hemoglobin 14.3 g/dL (14.1-18.0); Lymphocytes # 1.9 K/mm3 (0.7-4.5); Lymphocytes % 27.1 % (10-50); Mean Corpuscular HGB Conc 33.7 g/dL (31.8-35.4); Mean Corpuscular Hemoglobin 30.4 pg (27.0-31.2); Mean Corpuscular Volume 90.3 fl (80-94); Mean Platelet Volume 9.9 fl (7.4-10.4); Monocytes # 0.4 K/mm3 (0.1-1.0); Monocytes % 5.9 % (1.7-9.3); Neutrophils # 4.4 K/mm3 (1.8-7.8); Neutrophils % 63.5 % (37.0-80.0); Platelet Count 171 K/mm3 (142-424); Red Blood Count 4.71 M/mm3 (4.60-6.20); Red Cell Distribution Width 15.3 % (11.5-17.5); White Blood Count 6.9 K/mm3 (4.8-10.8)
[2018-12-20 09:42] LABS: Hemoglobin A1C 7.2 % (0.0-7.0)
[2018-12-20 10:39] LABS: Alanine Aminotransferase 26 U/L (12-78); Albumin Level 3.9 gm/dL (3.4-5.0); Albumin/Globulin Ratio 1.2 (1.1-1.8); Alkaline Phosphatase 57 U/L (46-116); Aspartate Amino Transferase 10 U/L (15-37); Bilirubin,Total 0.6 mg/dL (0.2-1.0); Blood Urea Nitrogen 22 mg/dL (7-18); Calcium 9.3 mg/dL (8.5-10.1); Carbon Dioxide 29 mmol/L (21.0-32.0); Chloride 103 mmol/L (98-107); Estimated Glomerular Filt Rate 65 ml/min (>60); GFR (African American) 78 ML/MIN (>60); Globulin 3.2 gm/dl (1.3-3.2); Glucose 131 mg/dL (74-106); Sodium 141 mmol/L (136-145); Total Protein,Serum 7.1 gm/dL (6.4-8.2)
== END ==
PROVIDERS: Visit Provider Nurse Practitioner Family
DX: E11.9 Type 2 diabetes mellitus without complications (principal); Z79.84 Long term (current) use of oral hypoglycemic drugs; M05.79 Rheumatoid arthritis with rheumatoid factor of multiple sites without organ or systems involvement
CPT/HCPCS: 36415; 80053; 83036; 85025

== ENCOUNTER → 2018-12-23 06:18 | Outpatient (CLI) | payer MEDICARE, SELFPAY ==
--- NOTE | 2018-12-23 06:23 | NM_ITS ---
CARDIOLITE SPECT MYOCARDIAL PERFUSION LEXISCAN, REST AND STRESS: [facility] REVIEW QGS EF AND WALL MOTION EVALUATION: QPS - PERFUSION EVALUATION HISTORY: CHEST PAIN DOSE: 10.68 mCi technetium 99m mibi intravenously at rest followed by 29.8 mCi technetium 99m mibi following the intravenous ministration of 0.4 mg of Lexiscan. Resting blood pressure is 200/94. Stress blood pressure 169/60. FINDINGS: Ejection fraction is calculated to be 62%. Stress images reveal mildly decreased activity in the inferior wall with little change during rest images. There is a small septal apical defects with stress which seems to improve with rest. Gated images calculated ejection fraction 62% with normal wall motion IMPRESSION: Inferior defect is most consistent with diaphragm attenuation while the small septal and apical defects appear consistent with ischemia. Normal ejection fraction normal wall motion.
--- NOTE | 2018-12-23 10:04 | HMH.ITSHM ---
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 [] pravastatin prednisone asa methotrexate folic acid metformin metoprolol turmeric
== END ==
PROVIDERS: PCP Internal Medicine Adolescent Medicine; Visit Provider Nurse Practitioner Family
DX: I25.10 Atherosclerotic heart disease of native coronary artery without angina pectoris (principal); I10 Essential (primary) hypertension; Z57.9 Occupational exposure to unspecified risk factor
CPT/HCPCS: 78452; 93017; A9502; J2785

== ENCOUNTER → 2020-01-04 11:19 | Outpatient (CLI) | payer MEDICARE, SELFPAY ==
[2020-01-04 11:39] LABS: Basophils % 0.7 % (0.1-2.0); Eosinophils # 0.2 K/mm3 (0.0-0.4); Eosinophils % 2.9 % (0.1-12.0); Hematocrit 45.7 % (42.0-52.0); Hemoglobin 14.2 g/dL (14.1-18.0); Lymphocytes # 1.6 K/mm3 (0.7-4.5); Lymphocytes % 25.7 % (10-50); Mean Corpuscular Hemoglobin 29.8 pg (27.0-31.2); Mean Corpuscular Volume 95.9 fl (80-94); Mean Platelet Volume 9.1 fl (7.4-10.4); Monocytes # 0.4 K/mm3 (0.1-1.0); Monocytes % 6.2 % (1.7-9.3); Neutrophils # 4.1 K/mm3 (1.8-7.8); Neutrophils % 64.5 % (37.0-80.0); Platelet Count 161 K/mm3 (142-424); Red Blood Count 4.77 M/mm3 (4.60-6.20); Red Cell Distribution Width 14.7 % (11.5-17.5); White Blood Count 6.4 K/mm3 (4.8-10.8)
[2020-01-04 12:58] LABS: Hemoglobin A1C 6.7 % (4.0-6.0)
[2020-01-04 13:11] LABS: Chol/HDL Ratio 1.9 (1-3.5); Cholesterol 90 mg/dl (140-200); HDL Cholesterol 47 mg/dl (40-60); Triglycerides 85 mg/dl (30-150); VLDL Cholesterol 17 mg/dL (0-40)
[2020-01-04 13:14] LABS: Alanine Aminotransferase 22 U/L (12-78); Albumin Level 4.6 g/dl (3.5-5.0); Albumin/Globulin Ratio 1.7 (1.1-1.8); Alkaline Phosphatase 56 U/L (38-126); Anion Gap 12.5 mEq/L (5-15); Aspartate Amino Transferase 24 U/L (17-59); Bilirubin,Total 0.5 mg/dl (0.2-1.3); Blood Urea Nitrogen 27 mg/dl (9-20); Calcium 10.2 mg/dl (8.4-10.2); Carbon Dioxide 27 mmol/L (22.0-30.0); Chloride 102 mmol/L (98-107); Estimated Glomerular Filt Rate 72 ml/min (>60); GFR (African American) 87 ML/MIN (>60); Globulin 2.7 g/dL (1.3-3.2); Glucose 111 mg/dl (74-100); Potassium 4.5 mmoL/L (3.5-5.1); Sodium 137 mmol/L (136-145); Total Protein,Serum 7.3 g/dl (6.3-8.2)
[2020-01-04 13:21] LABS: Direct LDL Cholesterol 47.22 mg/dL (100-129)
== END ==
PROVIDERS: Nurse Practitioner Family; Visit Provider Nurse Practitioner Family
DX: E78.5 Hyperlipidemia, unspecified (principal); M05.79 Rheumatoid arthritis with rheumatoid factor of multiple sites without organ or systems involvement; E11.9 Type 2 diabetes mellitus without complications; Z79.84 Long term (current) use of oral hypoglycemic drugs
CPT/HCPCS: 36415; 80053; 80061; 83036; 85025

== ENCOUNTER → 2020-12-10 11:04 | Outpatient (CLI) | payer MEDICARE, SELFPAY ==
[2020-12-10 11:36] LABS: Basophils % 0.2 % (0.1-2.0); Eosinophils # 0.2 K/mm3 (0.0-0.4); Eosinophils % 3.1 % (0.1-12.0); Hemoglobin 13.7 g/dL (14.1-18.0); Lymphocytes # 1.7 K/mm3 (0.7-4.5); Lymphocytes % 24.7 % (10-50); Mean Corpuscular HGB Conc 32.6 g/dL (31.8-35.4); Mean Corpuscular Hemoglobin 30.6 pg (27.0-31.2); Mean Corpuscular Volume 93.9 fl (80-94); Mean Platelet Volume 9.5 fl (7.4-10.4); Monocytes # 0.5 K/mm3 (0.1-1.0); Monocytes % 7.2 % (1.7-9.3); Neutrophils # 4.5 K/mm3 (1.8-7.8); Neutrophils % 64.8 % (37.0-80.0); Platelet Count 163 K/mm3 (142-424); Red Blood Count 4.48 M/mm3 (4.60-6.20); Red Cell Distribution Width 15.1 % (11.5-17.5); White Blood Count 6.9 K/mm3 (4.8-10.8)
[2020-12-10 11:48] LABS: Hemoglobin A1C 7.9 % (4.0-6.0)
[2020-12-10 12:02] LABS: Erythrocyte Sedimentation Rate 14 mm/hr (0-20)
[2020-12-10 12:20] LABS: Alanine Aminotransferase 30 U/L (12-78); Albumin Level 4.4 g/dl (3.5-5.0); Albumin/Globulin Ratio 1.8 (1.1-1.8); Alkaline Phosphatase 64 U/L (38-126); Anion Gap 13.2 mEq/L (5-15); Aspartate Amino Transferase 25 U/L (17-59); Bilirubin,Total 0.7 mg/dl (0.2-1.3); Blood Urea Nitrogen 28 mg/dl (9-20); Calcium 9.9 mg/dl (8.4-10.2); Carbon Dioxide 25 mmol/L (22.0-30.0); Chloride 103 mmol/L (98-107); Chol/HDL Ratio 2.8 (1-3.5); Cholesterol 109 mg/dl (140-200); Estimated Glomerular Filt Rate 72 ml/min (>60); GFR (African American) 87 ML/MIN (>60); Globulin 2.5 g/dL (1.3-3.2); Glucose 128 mg/dl (74-100); HDL Cholesterol 39 mg/dl (40-60); Potassium 4.2 mmoL/L (3.5-5.1); Sodium 137 mmol/L (136-145); Total Protein,Serum 6.9 g/dl (6.3-8.2); Triglycerides 78 mg/dl (30-150); VLDL Cholesterol 16 mg/dL (0-40)
[2020-12-10 12:31] LABS: Direct LDL Cholesterol 53.37 mg/dL (100-129)
[2020-12-10 12:51] LABS: Prostate Specific Ag Screen 1.2 ng/ml (0.0-4.0)
== END ==
PROVIDERS: Visit Provider Nurse Practitioner Family
DX: M05.79 Rheumatoid arthritis with rheumatoid factor of multiple sites without organ or systems involvement (principal); E11.9 Type 2 diabetes mellitus without complications; N40.1 Benign prostatic hyperplasia with lower urinary tract symptoms; Z12.5 Encounter for screening for malignant neoplasm of prostate; Z79.84 Long term (current) use of oral hypoglycemic drugs
CPT/HCPCS: 36415; 80053; 80061; 83036; 85025; 85651; G0103

== ENCOUNTER → 2021-09-03 16:45 | Outpatient (CLI) | payer MEDICARE, SELFPAY | PROVIDERS: PCP Nurse Practitioner Family; Visit Provider Nurse Practitioner | DX: U07.1 COVID-19 (principal) | CPT/HCPCS: C9803; U0003; U0005 ==

== ENCOUNTER → 2021-09-18 09:55 | Outpatient (CLI) | payer MEDICARE, SELFPAY ==
[2021-09-18 11:13] LABS: Chloride 103 mmol/L (98-107); Potassium 4.4 mmoL/L (3.5-5.1); Sodium 133 mmol/L (136-145)
[2021-09-18 11:16] LABS: Alanine Aminotransferase 22 U/L (12-78); Albumin Level 4.1 g/dl (3.5-5.0); Albumin/Globulin Ratio 1.5 (1.1-1.8); Alkaline Phosphatase 62 U/L (38-126); Anion Gap 10.4 mEq/L (5-15); Aspartate Amino Transferase 24 U/L (17-59); Bilirubin,Total 0.8 mg/dl (0.2-1.3); Blood Urea Nitrogen 28 mg/dl (9-20); Calcium 9.4 mg/dl (8.4-10.2); Carbon Dioxide 24 mmol/L (22.0-30.0); Chol/HDL Ratio 5.2 (1-3.5); Cholesterol 171 mg/dl (140-200); Estimated Glomerular Filt Rate 64 ml/min (>60); GFR (African American) 78 ML/MIN (>60); Globulin 2.8 g/dL (1.3-3.2); Glucose 135 mg/dl (74-100); HDL Cholesterol 33 mg/dl (40-60); Total Protein,Serum 6.9 g/dl (6.3-8.2); Triglycerides 85 mg/dl (30-150); VLDL Cholesterol 17 mg/dL (0-40)
[2021-09-18 11:19] LABS: Basophils # 0.1 K/mm3 (0-0.2); Eosinophils # 0.2 K/mm3 (0.0-0.4); Eosinophils % 2.6 % (0.1-12.0); Hematocrit 41.8 % (42.0-52.0); Hemoglobin 12.9 g/dL (14.1-18.0); Lymphocytes # 1.3 K/mm3 (0.7-4.5); Lymphocytes % 19.7 % (10-50); Mean Corpuscular HGB Conc 30.8 g/dL (31.8-35.4); Mean Corpuscular Hemoglobin 30.5 pg (27.0-31.2); Mean Platelet Volume 9.7 fl (7.4-10.4); Monocytes # 0.5 K/mm3 (0.1-1.0); Monocytes % 7.4 % (1.7-9.3); Neutrophils # 4.4 K/mm3 (1.8-7.8); Neutrophils % 69.4 % (37.0-80.0); Platelet Count 256 K/mm3 (142-424); Red Blood Count 4.22 M/mm3 (4.60-6.20); Red Cell Distribution Width 15.2 % (11.5-17.5); White Blood Count 6.3 K/mm3 (4.8-10.8)
[2021-09-18 11:23] LABS: C-Reactive Protein 7.1 mg/L (0-4)
[2021-09-18 11:27] LABS: Direct LDL Cholesterol 136.19 mg/dL (100-129)
[2021-09-18 12:38] LABS: Erythrocyte Sedimentation Rate 44 mm/hr (0-20)
== END ==
PROVIDERS: PCP Nurse Practitioner Family; Visit Provider Nurse Practitioner Family
DX: I25.10 Atherosclerotic heart disease of native coronary artery without angina pectoris (principal); E11.9 Type 2 diabetes mellitus without complications; M05.79 Rheumatoid arthritis with rheumatoid factor of multiple sites without organ or systems involvement; Z79.84 Long term (current) use of oral hypoglycemic drugs
CPT/HCPCS: 36415; 80053; 80061; 83036; 85025; 85651; 86140

== ENCOUNTER → 2022-04-08 09:19 | Outpatient (CLI) | payer MEDICARE, SELFPAY ==
[2022-04-08 10:08] LABS: Basophils # 0.1 K/mm3 (0-0.2); Basophils % 0.9 % (0.1-2.0); Eosinophils # 0.2 K/mm3 (0.0-0.4); Eosinophils % 2.7 % (0.1-12.0); Hematocrit 44.1 % (42.0-52.0); Hemoglobin 13.1 g/dL (14.1-18.0); Lymphocytes # 1.7 K/mm3 (0.7-4.5); Mean Corpuscular HGB Conc 29.6 g/dL (31.8-35.4); Mean Corpuscular Volume 104.5 fl (80-94); Mean Platelet Volume 9.1 fl (7.4-10.4); Monocytes # 0.5 K/mm3 (0.1-1.0); Monocytes % 7.9 % (1.7-9.3); Neutrophils # 4.4 K/mm3 (1.8-7.8); Neutrophils % 63.5 % (37.0-80.0); Platelet Count 160 K/mm3 (142-424); Red Blood Count 4.22 M/mm3 (4.60-6.20); Red Cell Distribution Width 16.2 % (11.5-17.5); White Blood Count 6.9 K/mm3 (4.8-10.8)
[2022-04-08 10:21] LABS: Hemoglobin A1C 6.8 % (4.0-6.0)
[2022-04-08 10:27] LABS: Chloride 106 mmol/L (98-107); Sodium 141 mmol/L (136-145)
[2022-04-08 10:28] LABS: Potassium 4.3 mmoL/L (3.5-5.1)
[2022-04-08 10:30] LABS: Alanine Aminotransferase 26 U/L (12-78); Albumin Level 4.3 g/dl (3.5-5.0); Albumin/Globulin Ratio 1.7 (1.1-1.8); Alkaline Phosphatase 65 U/L (38-126); Anion Gap 12.3 mEq/L (5-15); Aspartate Amino Transferase 28 U/L (17-59); Bilirubin,Total 0.4 mg/dl (0.2-1.3); Calcium 9.2 mg/dl (8.4-10.2); Carbon Dioxide 27 mmol/L (22.0-30.0); Globulin 2.5 g/dL (1.3-3.2); Glucose 80 mg/dl (74-100); Total Protein,Serum 6.8 g/dl (6.3-8.2)
[2022-04-08 10:34] LABS: Blood Urea Nitrogen 32 mg/dl (9-20); Estimated Glomerular Filt Rate 64 ml/min (>60); GFR (African American) 78 ML/MIN (>60)
== END ==
PROVIDERS: PCP Nurse Practitioner Family; Visit Provider Nurse Practitioner Family
DX: E11.9 Type 2 diabetes mellitus without complications (principal); I10 Essential (primary) hypertension; M05.79 Rheumatoid arthritis with rheumatoid factor of multiple sites without organ or systems involvement; Z79.84 Long term (current) use of oral hypoglycemic drugs
CPT/HCPCS: 36415; 80053; 83036; 85025

== ENCOUNTER → 2022-09-11 10:15 | Outpatient (CLI) | payer MEDICARE, SELFPAY ==
--- NOTE | 2022-09-11 10:34 | XR_ITS ---
FINAL REPORT TECHNIQUE: 5 views CLINICAL HISTORY: RHEUMATOID ARTHRITIS,NECK PAIN FINDINGS: There is no fracture present. There is no malalignment. There is moderate diffuse degenerative disc disease with mild spondylosis. There is mild bony neuroforaminal narrowing bilaterally at multiple levels. IMPRESSION: Mild diffuse degenerative disc disease as above. Reviewed, Interpreted and Dictated by Rob Butler MD Transcribed by Mya Carias Authenticated and [facility]
[2022-09-11 10:38] LABS: Basophils % 0.5 % (0.1-2.0); Eosinophils # 0.2 K/mm3 (0.0-0.4); Eosinophils % 1.8 % (0.1-12.0); Hematocrit 43.6 % (42.0-52.0); Hemoglobin 13.9 g/dL (14.1-18.0); Lymphocytes # 1.8 K/mm3 (0.7-4.5); Lymphocytes % 19.1 % (10-50); Mean Corpuscular HGB Conc 31.8 g/dL (31.8-35.4); Mean Corpuscular Hemoglobin 30.9 pg (27.0-31.2); Mean Corpuscular Volume 97.2 fl (80-94); Mean Platelet Volume 9.5 fl (7.4-10.4); Monocytes # 0.6 K/mm3 (0.1-1.0); Monocytes % 6.6 % (1.7-9.3); Neutrophils # 6.7 K/mm3 (1.8-7.8); Platelet Count 180 K/mm3 (142-424); Red Blood Count 4.49 M/mm3 (4.60-6.20); Red Cell Distribution Width 15.7 % (11.5-17.5); White Blood Count 9.3 K/mm3 (4.8-10.8)
[2022-09-11 11:05] LABS: Erythrocyte Sedimentation Rate 8 mm/hr (0-20)
[2022-09-11 11:09] LABS: Hemoglobin A1C 7.5 % (4.0-6.0)
[2022-09-11 11:21] LABS: Alanine Aminotransferase 33 U/L (12-78); Albumin Level 4.5 g/dl (3.5-5.0); Albumin/Globulin Ratio 1.7 (1.1-1.8); Alkaline Phosphatase 53 U/L (38-126); Anion Gap 12.3 mEq/L (5-15); Aspartate Amino Transferase 29 U/L (17-59); Bilirubin,Total 0.5 mg/dl (0.2-1.3); Blood Urea Nitrogen 30 mg/dl (9-20); Calcium 9.5 mg/dl (8.4-10.2); Carbon Dioxide 24 mmol/L (22.0-30.0); Chloride 107 mmol/L (98-107); Chol/HDL Ratio 2.5 (1-3.5); Cholesterol 107 mg/dl (140-200); Estimated Glomerular Filt Rate 64 ml/min (>60); GFR (African American) 78 ML/MIN (>60); Globulin 2.6 g/dL (1.3-3.2); Glucose 99 mg/dl (74-100); HDL Cholesterol 43 mg/dl (40-60); Potassium 4.3 mmoL/L (3.5-5.1); Sodium 139 mmol/L (136-145); Total Protein,Serum 7.1 g/dl (6.3-8.2); Triglycerides 93 mg/dl (30-150); VLDL Cholesterol 19 mg/dL (0-40)
[2022-09-11 11:51] LABS: Thyroid Stimulating Hormone 0.88 uIU/mL (0.465-4.68)
== END ==
PROVIDERS: PCP Nurse Practitioner Family; Visit Provider Nurse Practitioner Family
DX: M54.2 Cervicalgia (principal); M05.79 Rheumatoid arthritis with rheumatoid factor of multiple sites without organ or systems involvement; I10 Essential (primary) hypertension; R25.1 Tremor, unspecified; E11.9 Type 2 diabetes mellitus without complications; Z79.84 Long term (current) use of oral hypoglycemic drugs
CPT/HCPCS: 36415; 72050; 80053; 80061; 83036; 84443; 85025; 85651

== ENCOUNTER → 2023-01-13 07:01 | Outpatient (CLI) | payer MEDICARE, SELFPAY ==
[2023-01-13 08:34] LABS: Basophils % 0.2 % (0.1-2.0); Eosinophils # 0.2 K/mm3 (0.0-0.4); Eosinophils % 2.3 % (0.1-12.0); Hematocrit 42.2 % (42.0-52.0); Hemoglobin 13.5 g/dL (14.1-18.0); Lymphocytes # 2.4 K/mm3 (0.7-4.5); Lymphocytes % 28.7 % (10-50); Mean Corpuscular HGB Conc 31.9 g/dL (31.8-35.4); Mean Corpuscular Hemoglobin 30.1 pg (27.0-31.2); Mean Corpuscular Volume 94.5 fl (80-94); Mean Platelet Volume 9.8 fl (7.4-10.4); Monocytes # 0.5 K/mm3 (0.1-1.0); Monocytes % 5.7 % (1.7-9.3); Neutrophils # 5.3 K/mm3 (1.8-7.8); Neutrophils % 63.1 % (37.0-80.0); Platelet Count 168 K/mm3 (142-424); Red Blood Count 4.47 M/mm3 (4.60-6.20); Red Cell Distribution Width 15.8 % (11.5-17.5); White Blood Count 8.5 K/mm3 (4.8-10.8)
[2023-01-13 08:45] LABS: Alanine Aminotransferase 33 U/L (12-78); Albumin Level 4.2 g/dl (3.5-5.0); Albumin/Globulin Ratio 1.8 (1.1-1.8); Alkaline Phosphatase 61 U/L (38-126); Anion Gap 16.4 mEq/L (5-15); Aspartate Amino Transferase 27 U/L (17-59); Bilirubin,Total 0.4 mg/dl (0.2-1.3); Blood Urea Nitrogen 30 mg/dl (9-20); Calcium 9.4 mg/dl (8.4-10.2); Carbon Dioxide 25 mmol/L (22.0-30.0); Chloride 103 mmol/L (98-107); Chol/HDL Ratio 2.2 (1-3.5); Cholesterol 111 mg/dl (140-200); Estimated Glomerular Filt Rate 58 ml/min (>60); GFR (African American) 70 ML/MIN (>60); Globulin 2.4 g/dL (1.3-3.2); Glucose 79 mg/dl (74-100); HDL Cholesterol 50 mg/dl (40-60); Potassium 4.4 mmoL/L (3.5-5.1); Sodium 140 mmol/L (136-145); Total Protein,Serum 6.6 g/dl (6.3-8.2); Triglycerides 76 mg/dl (30-150); VLDL Cholesterol 15 mg/dL (0-40)
[2023-01-13 08:56] LABS: Direct LDL Cholesterol 52.24 mg/dL (100-129)
[2023-01-13 15:34] LABS: Hemoglobin A1C 7.5 % (4.0-6.0)
== END ==
PROVIDERS: PCP Nurse Practitioner Family; Visit Provider Nurse Practitioner Family
DX: E11.9 Type 2 diabetes mellitus without complications (principal); I10 Essential (primary) hypertension; M05.79 Rheumatoid arthritis with rheumatoid factor of multiple sites without organ or systems involvement; Z79.84 Long term (current) use of oral hypoglycemic drugs
CPT/HCPCS: 36415; 80053; 80061; 83036; 85025

== ENCOUNTER → 2023-06-23 09:25 | Outpatient (CLI) | payer MEDICARE, SELFPAY ==
[2023-06-23 10:14] LABS: Basophils % 0.3 % (0.1-2.0); Eosinophils # 0.2 K/mm3 (0.0-0.4); Eosinophils % 2.2 % (0.1-12.0); Hematocrit 42.5 % (42.0-52.0); Hemoglobin 14.2 g/dL (14.1-18.0); Lymphocytes % 22.2 % (10-50); Mean Corpuscular HGB Conc 33.3 g/dL (31.8-35.4); Mean Corpuscular Hemoglobin 32.5 pg (27.0-31.2); Mean Corpuscular Volume 97.4 fl (80-94); Mean Platelet Volume 9.7 fl (7.4-10.4); Monocytes # 0.5 K/mm3 (0.1-1.0); Monocytes % 5.9 % (1.7-9.3); Neutrophils # 6.4 K/mm3 (1.8-7.8); Neutrophils % 69.4 % (37.0-80.0); Platelet Count 154 K/mm3 (142-424); Red Blood Count 4.37 M/mm3 (4.60-6.20); Red Cell Distribution Width 15.1 % (11.5-17.5); White Blood Count 9.2 K/mm3 (4.8-10.8)
[2023-06-23 10:26] LABS: Alanine Aminotransferase 36 U/L (12-78); Albumin Level 4.3 g/dl (3.5-5.0); Albumin/Globulin Ratio 1.7 (1.1-1.8); Alkaline Phosphatase 54 U/L (38-126); Anion Gap 17.4 mEq/L (5-15); Aspartate Amino Transferase 33 U/L (17-59); Bilirubin,Total 0.6 mg/dl (0.2-1.3); Blood Urea Nitrogen 33 mg/dl (9-20); Calcium 9.7 mg/dl (8.4-10.2); Carbon Dioxide 22 mmol/L (22.0-30.0); Chloride 103 mmol/L (98-107); Chol/HDL Ratio 2.5 (1-3.5); Cholesterol 121 mg/dl (140-200); Estimated Glomerular Filt Rate 64 ml/min (>60); GFR (African American) 77 ML/MIN (>60); Globulin 2.6 g/dL (1.3-3.2); Glucose 82 mg/dl (74-100); HDL Cholesterol 49 mg/dl (40-60); Potassium 4.4 mmoL/L (3.5-5.1); Sodium 138 mmol/L (136-145); Total Protein,Serum 6.9 g/dl (6.3-8.2); Triglycerides 86 mg/dl (30-150); VLDL Cholesterol 17 mg/dL (0-40)
[2023-06-23 10:28] LABS: Hemoglobin A1C 7.1 % (4.0-6.0)
[2023-06-23 10:37] LABS: Direct LDL Cholesterol 61.16 mg/dL (100-129)
[2023-06-23 10:57] LABS: Thyroid Stimulating Hormone 0.96 uIU/mL (0.465-4.68)
[2023-06-23 11:34] LABS: Vitamin B12 195 pg/mL (239-931)
== END ==
PROVIDERS: PCP Nurse Practitioner Family; Visit Provider Nurse Practitioner Family
DX: I10 Essential (primary) hypertension (principal); E11.9 Type 2 diabetes mellitus without complications; M05.79 Rheumatoid arthritis with rheumatoid factor of multiple sites without organ or systems involvement; R53.81 Other malaise
CPT/HCPCS: 36415; 80053; 80061; 82607; 82746; 83036; 84443; 85025

== ENCOUNTER → 2023-07-20 10:57 | Outpatient (CLI) | payer MEDICARE, SELFPAY ==
--- NOTE | 2023-07-20 11:11 | XR_ITS ---
FINAL REPORT CLINICAL HISTORY: RT SHOULDER PAIN COMPARISON: None FINDINGS: RIGHT SHOULDER 3 views demonstrate no acute fracture or dislocation. There is mild AC joint and mild glenohumeral joint degenerative change. The visualized bony structures are well aligned. No soft tissue abnormality is seen. IMPRESSION: Mild degenerative changes without acute process. Reviewed, Interpreted and Dictated by Declan Ortega III, MD Transcribed by Cherelle Diggs Authenticated and . [facility]
--- NOTE | 2023-07-20 11:11 | XR_ITS ---
FINAL REPORT CLINICAL HISTORY: RT HIP PAIN COMPARISON: None FINDINGS: RIGHT HIP Three views of the right hip, including AP view of the pelvis, demonstrate no acute fracture or dislocation. There are mild degenerative changes of both hips in the lower lumbar spine. The visualized bony structures are well aligned. No soft tissue abnormality is seen. IMPRESSION: Mild degenerative changes without acute bony abnormality. Reviewed, Interpreted and Dictated by Declan Ortega III, MD Transcribed by Cherelle Diggs Authenticated and [facility]
== END ==
PROVIDERS: PCP Nurse Practitioner Family; Visit Provider Nurse Practitioner Family
DX: M25.511 Pain in right shoulder (principal); M79.604 Pain in right leg
CPT/HCPCS: 73030; 73502

== ENCOUNTER 2023-10-15 10:00 | Outpatient (RCR) | payer MEDICARE, SELFPAY ==
--- NOTE | 2023-10-07 15:23 | HMH.OTOPEV ---
OT Inpatient Evaluation Rehab OT Outpatient Eval Start: 10/07/23 15:00 Freq: Status: Active Protocol: Document 10/07/23 15:00 NBAELAINE (Rec: 10/07/23 15:19 PELON [id number]) E-signed By Mishel Dela Cruz, OT Outpatient Therapy Subjective History Subjective History 83 year old male with R shoulder pain. Patient stated to have increase pain levels since May 2023. Patient reported having stroke like symptoms but did not seek medical advice and have no images completed at that time. Patient reported having hemiparesis to the R UE and R LE with resolved symptoms. However Patient verbalize having pain in the R shld continues with recieving 1 cortisone shot with minimal to no relief. Chief Complaint Pain Symptom Type Ache Symptoms Relieved By Nothing Symptoms Aggravated By Physical Activity Prior Functional Limitations None Current Functional Limitations Reaching,Lifting,Recreation Activity Symptom Description Constant and Continuous Level of pain today (0-10) 4 Pain scale - at its best (0-10) 4 Pain scale - at its worst (0-10) 4 Shoulder/Elbow Eval Shoulder Objective Measurements Shoulder ROM Right Shoulder Abduction Active Range of 90 Motion (degrees) Shoulder Flexion Active Range of Motion 90 (degrees) Query Text: Shoulder External Rotation Active Range 40 of Motion (degrees) Shoulder Internal Rotation Active Range 40 of Motion (degrees) pain with active ROM shoulder exam right standard Shoulder MMT Upper Trapezius/Levator Scapulae 3- Fair- Shoulder Abduction Strength Grade 3- Fair- Shoulder Extension Strength Grade 3- Fair- Shoulder Flexion Strength Grade 3- Fair- Shoulder Horizontal Abduction Strength 3- Fair- Grade Shoulder Horizontal Adduction Strength 3- Fair- Grade Infraspinatus/Teres Minor Strength Grade 3- Fair- Shoulder External Rotation Strength 3- Fair- Grade Shoulder Internal Rotation Strength 3- Fair- Grade Shoulder Special Tests impingement sign present shoulder exam right standard Shoulder Empty Can (Supraspinatus) Test Positive Right Shoulder Patel-Yvan Impingement Positive Right Test Elbow Objective Measurements QuickDASH Activities Please rate your ability to do the following activities in the last week by selecting the number below the appropriate response. 1. Open a tight or new jar. Severe difficulty 2. Do heavy inside sales director (e.g., wash Severe difficulty lala, floors). 3. Carry a shopping bag or briefcase. Severe difficulty 4. Wash your back. Severe difficulty 5. Use a knife to cut food. Severe difficulty 6. Recreational activities in which you Severe difficulty take some force or impact through your arm, shoulder, or hand (e.g., golf, hammering, tennis, etc.). 7. During the past week, to what extent Quite a bit has your arm, shoulder or hand problem interfered with your normal social activities with family, friends, neighbors or groups? 8. During the past week, were you Very limited limited in your work or other regular daily activites as a result of your arm, shoulder or hand problem? 9. Arm, shoulder or hand pain. Severe 10. Tingling (pins and needles) in your Severe arm, shoulder or hand. 11. During the past week, how much Severe difficulty difficulty have you had sleeping because of the pain in your arm, shoulder or hand? Quick DASH 44 Work Module (optional) The following questions ask about the impact of your arm, shoulder or hand problem on your ability to work (including homemaking if that is your main work role). Please indicate what your job/work is: retired Do you work? No 1. Using your usual technique for your Severe difficulty work? 2. Doing your usual work because of arm, Severe difficulty shoulder or hand pain? 3. Doing your work as well as you would Severe difficulty like? 4. Spending your usual amount of time Severe difficulty doing your work? Quick Dash Work Module Score 16 OT Outpatient Assessment Impairments Problems/Impairments Impaired Range of Motion, Impaired Strength,Subjective C /O Pain Prognosis Rehab Potential Good Clinical Impression Consistent with Diagnosis Yes Outpatient Therapy Plan of Care Treatment Plan May Include Therapeutic Exercise Including Home Yes Exercise Program Manual Therapy Techniques Yes Therapeutic Activities to Return to Yes Previous Functional/Work Level Thermal Modalities Yes Electrical Stimulation Yes Ultrasound/Phonophoresis Yes Iontophoresis Yes Eval/Re-Eval Yes Aquatic Therapy Yes Frequency Times per week 2x/wk Duration Number of Weeks 4 weeks Addendums This patient is a candidate for social No or vocational rehab? Patient/Guardian verbally acknowledges Yes understanding of treatment program and consents to further treatment? Patient/Guardian verbally acknowledges Yes understanding of diagnosis, prognosis and goals for treatment? Eval Complexity OT Charge 33034 - Low Complexity PHYSICIAN CERTIFICATION: I certify the specified therapy services for Tha Mcneil are required, authorized, and reviewed every 30 days.
== END 2023-10-15 11:15 | disposition home or self-care (01) ==
LOC: OT 10:00
PROVIDERS: PCP Nurse Practitioner Family; Visit Provider Nurse Practitioner Family
DX: M25.511 Pain in right shoulder (principal)
CPT/HCPCS: 97010; 97014; 97035; 97110; 97140; 97165; 97530; G0283

== ENCOUNTER 2023-12-08 09:52 | Outpatient (POV) | payer MEDICARE, SELFPAY | END 2023-12-08 23:59 | disposition home or self-care (01) | LOC: SC 09:52 | PROVIDERS: PCP Nurse Practitioner Family; Visit Provider Dermatology | DX: Z00.00 Encounter for general adult medical examination without abnormal findings (principal) ==

== ENCOUNTER 2024-03-14 07:26 | Outpatient (CLI) | payer MEDICARE, SELFPAY ==
--- NOTE | 2024-03-14 | MR_ITS ---
FINAL REPORT TECHNIQUE: Multiplanar and multisequence imaging of the shoulder was obtained without contrast. CLINICAL HISTORY: RIGHT SHOULDER PAIN, ARTHRITIS FINDINGS: Exam is limited by motion artifact. Bones and joints: There is no acute fracture, edema, or pathologic marrow replacement. Acromioclavicular joint degenerative disease is present and there is osteophytosis which narrows the supraspinatus outlet. Rotator cuff: There is a full-thickness supraspinatus tendon tear at the footplate which extends into the anterior infraspinatus tendon. More posterior fibers are intact. There is mild fatty atrophy of the supraspinatus muscle. Labrum: Evaluation of the labrum is particularly limited by motion artifact. SLAP tear of the superior labrum not excluded.. The inferior glenohumeral ligament is grossly intact. Biceps labral complex is abnormal with a likely tear of the biceps tendon at the biceps labral complex. Other: There is a small joint effusion. Fluid is seen in the subdeltoid bursa. Remaining soft tissues are within normal limits. IMPRESSION: Exam limited by motion. Full-thickness supraspinatus tendon tear extending into the infraspinatus tendon. Probable biceps tendon tear at the biceps labral complex. SLAP tear of the superior labrum not excluded. Reviewed, Interpreted and Dictated by Peggy Mantilla MD Transcribed by Awilda Mcduffie Authenticated and [facility]
--- NOTE | 2024-03-14 07:31 | MR_ITS ---
FINAL REPORT CLINICAL HISTORY: ACUTE RT SIDED LBP FINDINGS: Multiplanar MR imaging of the lumbar spine was performed without contrast. On the sagittal T2-weighted images, multilevel disc degeneration is seen. The vertebral alignment is normal. There is no evidence of fracture. No bony mass is identified. The conus is seen at approximately the T12 level and has an unremarkable appearance. Note is made of a right renal cyst. L1-2: Annular disc bulge with bilateral facet osteoarthropathy. There is mild left neuroforaminal narrowing. L2-3: Annular disc bulge with degenerative endplate changes and facet osteoarthropathy. There is mild to moderate central canal stenosis and mild bilateral neuroforaminal narrowing. L3-4: Annular disc bulge with degenerative endplate changes and facet osteoarthropathy. There is mild central canal stenosis with mild to moderate bilateral neuroforaminal narrowing. L4-5: Right paracentral disc protrusion superimposed on annular disc bulge. There is bilateral facet osteoarthropathy. There is moderate central canal stenosis. Disc material may contact the right L5 nerve root within the central canal. L5-S1: Annular disc bulge with degenerative endplate changes and facet osteoarthropathy. There is an annular fissure and mild central canal stenosis. Reviewed, Interpreted and Dictated by Peggy Mantilla MD Transcribed by Awilda Mcduffie Authenticated and [facility]
== END 2024-03-14 23:59 | disposition home or self-care (01) ==
LOC: RAD 07:26
PROVIDERS: PCP Nurse Practitioner Family; Visit Provider Nurse Practitioner Family
DX: M54.41 Lumbago with sciatica, right side (principal); M19.011 Primary osteoarthritis, right shoulder; M25.511 Pain in right shoulder
CPT/HCPCS: 72148; 73221